=== PATIENT | female | born 1945 | race Two or more races ===

== ENCOUNTER 2022-07-06 11:42 | Inpatient (IN) | payer MEDICARE ==
[~2022-07-06] VITALS: Ht 162.6 cm; Wt 50.0 kg
[2022-07-06] MEDS ORDERED: SODIUM CHLORIDE 0.9% 1,000 ML IVB ONE (12:30)
[2022-07-06 13:08] LABS: Hematocrit 30.7 % (36.0-46.0); Mean Corpuscular Hemoglobin 31.6 pg (28.0-32.0); Mean Corpuscular Hgb Conc. 32.5 g/dL (32.0-36.0); Mean Corpuscular Volume 97.2 fL (80.0-100.0); Red Blood Cells 3.16 10^6/uL (4.0-5.20); White Blood Cell 9.6 10^3/uL (4.4-10.8)
[2022-07-06 13:24] LABS: Albumin 1.5 g/dL (3.4-5.0); Anion Gap 12 (5-15); Blood Alcohol < 3.0 mg/dL (0-5); Blood Urea Nitrogen 13 mg/dL (7-18); Calcium 7.6 mg/dL (8.5-10.1); Carbon Dioxide 18 mmol/L (21-32); Chloride 114 mmol/L (98-107); Glucose 105 mg/dL (74-106); Potassium 4.2 mmol/L (3.5-5.1); Sodium 144 mmol/L (136-145)
[2022-07-06 13:27] LABS: Alanine Aminotransferase 11 U/L (13-56); Alkaline Phosphatase 280 U/L (45-117); Aspartate Aminotransferase 30 U/L (15-37); BUN/Creatinine Ratio 22.8; Bilirubin, Total 0.4 mg/dL (0.2-1.0); GFR African American 132 mL/min; GFR Non-African American 109 mL/min; Total Protein 4.9 g/dL (6.4-8.2)
[2022-07-06 13:34] LABS: Red Cell Distribution Width 20.1 % (11.8-14.3)
[2022-07-06 13:35] LABS: Basophils % (manual) 0 (0.0-2.0); Blast Cells 0; Eosinophils % (manual) 0 (0-7); Metamyelocytes % 0; Promyelocytes % 0; Reactive Lymphocytes 0
[2022-07-06 14:43] LABS: Band Neutrophils % (manual) 21; Lymphocytes % (manual) 8 (10.0-50.0); Monocytes % (manual) 5 (0-12); Myelocytes % 1
[2022-07-06] MEDS ORDERED: ONDANSETRON HCL 4 MG/2 ML VIAL IV PRN (15:30)
[2022-07-06] MEDS: SODIUM CHLORIDE 0.9% 1,000 ML IV SCH (21:04)
[2022-07-06] MEDS ORDERED: FLUT250M2 INH (23:22)
[2022-07-06] MEDS ORDERED: LEVE500T3 PO (23:22)
[2022-07-06] MEDS ORDERED: FAMO20TA10 PO (23:22)
[2022-07-06] MEDS ORDERED: CLOP75TA70 PO (23:22)
[2022-07-06] MEDS ORDERED: ATOR-47 PO (23:22)
[2022-07-06] MEDS ORDERED: DILT-29 PO (23:22)
[2022-07-06] MEDS ORDERED: ZOLP10TA6 PO (23:22)
[2022-07-06] MEDS ORDERED: PANT40T PO (23:22)
[2022-07-06] MEDS ORDERED: PHE100C PO (23:22)
[2022-07-06] MEDS ORDERED: LEV88T PO (23:22)
[2022-07-06] MEDS ORDERED: ALPR0.5T7 PO (23:22)
[2022-07-06] MEDS ORDERED: LISI-275 PO (23:22)
[2022-07-07 00:27] VITALS: BP 123/53
[2022-07-07 04:47] VITALS: BP 119/48
[2022-07-07 08:42] VITALS: BP 126/52
[2022-07-07] MEDS ORDERED: LOPE2CAP PO (09:08)
[2022-07-07] MEDS ORDERED: ONDA-144 SL (09:32)
[2022-07-07] MEDS ORDERED: POTA10TA51 PO (09:32)
[2022-07-07] MEDS ORDERED: ACET250T3 PO (09:32)
[2022-07-07] MEDS ORDERED: TRAM50TA2 PO (09:32)
[2022-07-07] MEDS ORDERED: CYA100I IM (09:32)
[2022-07-07] MEDS ORDERED: ASPI325T4 PO (09:32)
[2022-07-07] MEDS ORDERED: PROC10TA2 PO (09:32)
[2022-07-07] MEDS ORDERED: GABA100C9 PO (09:32)
[2022-07-07] MEDS ORDERED: FERR27TA2 PO (09:32)
[2022-07-07] MEDS ORDERED: traMADol HCL 50 MG TAB PO PRN (09:45)
[2022-07-07] MEDS ORDERED: ONDANSETRON 8 MG SL PRN (09:45)
[2022-07-07] MEDS ORDERED: LOPERAMIDE HCL 2 MG CAP/TAB PO PRN (09:45)
[2022-07-07] MEDS ORDERED: acetaZOLAMIDE 250 MG TAB PO PRN (09:45)
[2022-07-07] MEDS ORDERED: PROCHLORPERAZINE MALEATE 10 MG TAB PO PRN (09:45)
[2022-07-07] MEDS ORDERED: LEVOTHYROXINE SODIUM 88 MCG TAB PO SCH (10:00)
[2022-07-07] MEDS ORDERED: levETIRAcetam 500 MG TAB PO SCH (10:00)
[2022-07-07] MEDS ORDERED: CYANOCOBALAMIN (B-12) 1000 MCG/1 ML VIAL IM SCH (10:00)
[2022-07-07] MEDS ORDERED: FAMOTIDINE 20 MG TAB PO SCH (10:00)
[2022-07-07] MEDS ORDERED: FERROUS GLUCONATE PO SCH (10:00)
[2022-07-07] MEDS ORDERED: LISINOPRIL 5 MG TAB PO SCH (10:00)
[2022-07-07] MEDS ORDERED: ALPRAZolam 0.5 MG TAB PO SCH (10:00)
[2022-07-07] MEDS ORDERED: PANTOPRAZOLE 40 MG TAB PO SCH (10:00)
[2022-07-07] MEDS ORDERED: PATIENTS OWN MEDICATION (Fluticasone-Salmeterol (Advair Diskus 250/50) 1 PUFF) IN SCH (10:00)
[2022-07-07] MEDS ORDERED: GADOTERATE MEG 7.5 MMOL/15ml INJ (0.5MMOL/ml) IV ONE (10:14)
[2022-07-07 12:02] LABS: Alcohol, Urine < 3.0 mg/dL (0-10); Amphetamine Screen, Urine NEGATIVE (NEGATIVE); Barbiturate Scree,Urine NEGATIVE (NEGATIVE); Benzodiazephine Screen, Urine POSITIVE (NEGATIVE); Cannabinoid Screen, Urine NEGATIVE (NEGATIVE); Cocaine Screen, Urine NEGATIVE (NEGATIVE); Opiate Scree,Urine NEGATIVE (NEGATIVE)
[2022-07-07 12:11] LABS: Phencyclidine Screen, Urine NEGATIVE (NEGATIVE)
[2022-07-07 12:26] LABS: Urine Bacteria MOD /hpf (None Seen); Urine Blood 3+ /uL (Negative); Urine Mucus FEW (None Seen); Urine Specific Gravity 1.021 (1.001-1.035); Urine WBC 128 /hpf (0 - 5)
[2022-07-07 12:37] VITALS: BP 118/58
[2022-07-07] MEDS ORDERED: GABAPENTIN 100 MG CAP PO SCH (14:00)
[2022-07-07 15:07] VITALS: BP 118/58
[2022-07-07] MEDS: SODIUM CHLORIDE 0.9% 1,000 ML IV SCH (15:18)
[2022-07-07] MEDS ORDERED: ZOLPIDEM TARTRATE 5 MG TAB PO PRN (22:00)
[2022-07-08] MEDS ORDERED: ASPirin-EC 81 mg tab PO SCH (10:00)
[2022-07-08] MEDS ORDERED: dilTIAZem 120MG ER CAP PO SCH (10:00)
[2022-07-08] MEDS ORDERED: CLOPIDOGREL BISULFATE 75 MG TAB PO SCH (10:00)
[2022-07-08] MEDS ORDERED: ATORVASTATIN 20 MG TAB PO SCH (10:00)
[2022-07-08] MEDS ORDERED: POTASSIUM CHLORIDE 8 MEQ TAB PO SCH (10:00)
== END 2022-07-07 16:25 | disposition home or self-care (01) | DRG 70 ==
LOC: EDBD 11:42 → ER 11:42 → TELE 15:33 → TELE-CENTR 23:42
PROVIDERS: ADMIT Nurse Practitioner Family; ATTEND Nurse Practitioner Family
DX: G93.41 Metabolic encephalopathy (principal); E43 Unspecified severe protein-calorie malnutrition; C34.90 Malignant neoplasm of unspecified part of unspecified bronchus or lung; C79.51 Secondary malignant neoplasm of bone; Z68.1 Body mass index [BMI] 19.9 or less, adult; I10 Essential (primary) hypertension; Z20.822 Contact with and (suspected) exposure to COVID-19; E03.9 Hypothyroidism, unspecified; J44.9 Chronic obstructive pulmonary disease, unspecified; R56.9 Unspecified convulsions; Z53.20 Procedure and treatment not carried out because of patient's decision for unspecified reasons; Z80.0 Family history of malignant neoplasm of digestive organs; Z85.118 Personal history of other malignant neoplasm of bronchus and lung; Z86.73 Personal history of transient ischemic attack (TIA), and cerebral infarction without residual deficits; Z87.891 Personal history of nicotine dependence; Z92.21 Personal history of antineoplastic chemotherapy; Z99.3 Dependence on wheelchair
CPT/HCPCS: 36415; 70450; 80053; 80307; 80320; 81001; 85007; 85027; 87081; 93005; 96361; 96374; 97163; G0378; J2405; Q0164

== ENCOUNTER 2022-07-13 16:56 | Emergency (ER) | payer MEDICARE, OTHER ==
[~2022-07-13] VITALS: Ht 165.1 cm; Wt 59.9 kg
[~2022-07-13 16:56] MED LIST: ACET250T3 PO; ALPR0.5T7 PO; ASPI325T4 PO; ATOR-47 PO; CLOP75TA70 PO; CYA100I IM; DILT-29 PO; FAMO20TA10 PO; FERR27TA2 PO; FLUT250M2 INH; GABA100C9 PO; LEV88T PO; LEVE500T3 PO; LISI-275 PO; LOPE2CAP PO; ONDA-144 SL; PHE100C PO; POTA10TA51 PO; PROC10TA2 PO; TRAM50TA2 PO; ZOLP10TA6 PO
[2022-07-13 17:53] VITALS: BP 52/19
== END 2022-07-13 17:25 ==
LOC: EDBD 16:56 → ER 17:00
DX: I46.9 Cardiac arrest, cause unspecified (principal); R41.82 Altered mental status, unspecified; Z86.73 Personal history of transient ischemic attack (TIA), and cerebral infarction without residual deficits
CPT/HCPCS: 31500; 92950; 93005; 94002; 99291